=== PATIENT | male | born 1955 | race Caucasian/White ===

== ENCOUNTER → 2021-06-06 | Outpatient (CLI) | payer OTHER ==
[~2021-06-06] MED LIST: IOHEXOL-350 50ML VIAL IV ONE
== END | disposition home or self-care (01) ==
LOC: RAH 11:02
PROVIDERS: ATTEND Urology
DX: N20.0 Calculus of kidney (principal); Z79.01 Long term (current) use of anticoagulants
CPT/HCPCS: 50431; 74018; 74425; Q9967